=== PATIENT | male | born 1975 | race Two or more races ===

== ENCOUNTER 2020-05-19 09:41 | Emergency (ER) | payer SELFPAY ==
[~2020-05-19] VITALS: Ht 180.3 cm; Wt 181.4 kg
[2020-05-19] MEDS ORDERED: CALCIUM CHLOR(10%) 100MG/ML 10ML SYRINGE IV ONE (09:42)
[2020-05-19] MEDS ORDERED: EPINEPHrine HCL 1 MG/10 ML SYRG IV ONE (09:42)
[2020-05-19] MEDS ORDERED: SODIUM BICARBONATE 8.4% INJ 50ML SYRINGE IV ONE (09:42)
== END 2020-05-19 11:25 | disposition expired ==
LOC: ER 09:41 → EDBD 09:41 → ER 11:25
DX: I46.9 Cardiac arrest, cause unspecified (principal); I10 Essential (primary) hypertension
CPT/HCPCS: 31500; 92950; 99285; J0171